=== PATIENT | female | born 1965 | race Caucasian/White ===

== ENCOUNTER 2024-01-08 09:11 | Day surgery (SDC) | payer BC, OTHER ==
[~2024-01-08 09:11] MED LIST: Sodium Chloride 0.9% 10 ML Syringe FLUSH PRN; Sodium Chloride 0.9% 2.5 ML Syringe FLUSH PRN; Sodium Chloride 0.9% 20 ML SDV IV PRN
[2024-01-08] MEDS: Lactated Ringers 1,000 ML IV SCH (09:34)
[2024-01-08] MEDS ORDERED: Lidocaine 2% 5 ML SDV ONE (11:00)
[2024-01-08] MEDS ORDERED: propofoL 50 ML ONE (11:01)
== END 2024-01-08 12:20 | disposition home or self-care (01) ==
LOC: MW.SDS 09:11
PROVIDERS: ATTEND Surgery
DX: R10.84 Generalized abdominal pain (principal); R68.81 Early satiety; K58.9 Irritable bowel syndrome, unspecified; E78.00 Pure hypercholesterolemia, unspecified; I10 Essential (primary) hypertension; K21.9 Gastro-esophageal reflux disease without esophagitis; E03.9 Hypothyroidism, unspecified; Z79.890 Hormone replacement therapy; Z79.899 Other long term (current) drug therapy; Z88.0 Allergy status to penicillin
CPT/HCPCS: 43239; 45380; J2704; J7120; 00813; J3490